=== PATIENT | female | born 1980 | race Caucasian/White ===

== ENCOUNTER 2016-07-01 16:21 | Observation (INO) | payer OTHER ==
--- NOTE | ~2016-07-01 | DS ---
Unit #: [id number] #: [id number] Patient: SHAHEED HOGAN [id number] [address] [place], [place] [address] [id number] I MR#: [id number] NAME: SHAHEED HOGAN ROOM: 571 Age: 36 Sex: F Admission Date: 07/01/2016 : 1980 Discharge Date: 07/02/2016 Attending Physician: Gio Summers M.D. Primary Care Physician: Marietta Will M.D. DISCHARGE SUMMARY SHORT STAY SUMMARY DISCHARGE DIAGNOSES 1. Chest pain, status post cardiology evaluation with a negative stress test. 2. Shortness of air on exertion. Offered to do a CT angiogram to rule out PE; however, patient adamantly refused this and states that she has been cleared per cardiology to be discharged. Again, explained the patient the importance to rule out the PE; however, again, patient refuses to stay. States that she will follow up with her primary care physician, Dr. Will, at the office. Patient is status post lower extremity ultrasound and status post negative unremarkable 2D echocardiogram, which did not show any right ventricular strain with a normal ejection fraction. Less likely to have a PE; however, that would have been in my differential if I would have had a chance to complete the workup on this patient; but, again, patient refuses to stay. 3. Questionable chronic obstructive pulmonary disease with mild wheezing on the exam. Will start on Ventolin p.r.n. inhaler. Outpatient followup with the primary care physician and consider pulmonary evaluation. 4. Urinary tract infection. Urine positive for nitrates and leukocyte esterase. Urine culture, preliminary, shows more than 100,000 colonies gram-negative leanna. Again, patient refusing to stay. Will start on Cipro empirically. Follow up with the primary care physician's office. Patient is asymptomatic from urinary tract infection standpoint. CONSULT DURING THIS HOSPITAL STAY Dr. Rivera. DIAGNOSTIC STUDIES IMAGING: Lower extremity ultrasound, as above. CARDIOVASCULAR: 2D echo, as above. Stress test unremarkable, per cardiology stable to be discharged. LABORATORY: UA as above. Chemistry significant for blood glucose of 118. White count 7.6. Serial cardiac enzymes negative. Coagulation panel unremarkable. H and H 13.9 and 41.8. Urine culture, again, pending. HISTORY OF PRESENT ILLNESS AND HOSPITAL STAY Patient is a 36-year-old, obese, female patient of Dr. Will's Unit #: [id number] #: [id number] Patient: SHAHEED HOGAN who started experiencing some chest pain, squeezing type of chest pain, along with some shortness of air and dyspnea on exertion; which was intermittent and started about 5 days ago. Patient denies any fever or chills. Denies any productive cough. Denies any headache or dizziness. Denies any syncopal episode or presyncopal episode. Denies any dysuria issues. Denies any nausea, vomiting, diarrhea, or abdominal pain. No alleviating factors to the pain and, again, exacerbated by increased physical activity. PAST MEDICAL HISTORY None. HOME MEDICATIONS None. ALLERGIES No known drug allergies. SOCIAL HISTORY She is an active smoker. Denies any alcohol or illicit drugs. FAMILY HISTORY Unremarkable. PAST SURGICAL HISTORY None. PHYSICAL EXAMINATION ON PRESENTATION GENERAL APPEARANCE: Patient is a 36-year-old, obese, female in no acute distress. VITAL SIGNS: BP 128/98, heart rate 83, respirations 20, and temperature 97.9. HEENT: Head is atraumatic. Pupils are equal, round, and reactive to light and accommodation. Extraocular muscles intact. Oropharynx clear with the missing teeth. NECK: Supple. No mass. No JVD. No bruits. CHEST: Diminished bilaterally at the bases with the occasional very mild expiratory wheezing. CARDIOVASCULAR: S1 and S2. No murmurs. ABDOMEN: Soft, nontender, and nondistended. LOWER EXTREMITIES: Without any cyanosis, clubbing, or edema. NEUROLOGIC: Patient grossly intact. No focal deficits. Labs and diagnostics as above. ASSESSMENT AND PLAN 1. Chest pain as above. Status post negative cardiac workup. 2. Shortness of air and dyspneas. Questionable COPD. Again, offered the CT angio to rule out PE. Refuses to stay. Will start on Ventolin. Outpatient followup with the primary care physician and pulmonary. 3. UTI. Urine culture, as above, pending. Will start on Cipro. 4. Obesity. Counseled on the importance of losing weight. DISCHARGE MEDICATIONS 1. Metoprolol 25 mg p.o. b.i.d. 2. Ventolin 2 puffs inhaled q.4-6 p.r.n. for shortness of air. 3. Cipro 500 mg p.o. b.i.d. for 5 days. Unit #: [id number] #: [id number] Patient: SHAHEED HOGAN Dictated by..Valentino Wynn/paxton TD: 07/03/2016 07:01 JOB #: [id number] DISCHARGE SUMMARY Page 1 of 1 X Gio Summers MD X DISCHARGE SUMMARY
--- NOTE | ~2016-07-01 | TH ---
Unit #: [id number] #: [id number] Patient: SHAHEED HOGAN [id number] [address] [address] [id number] I MR#: [id number] NAME: SHAHEED HOGAN : 1980 SEX: F STUDY DATE/TIME: 07/02/2016 UNIT: [facility] ROOM: 571 STUDY DESCRIPTION: Attending Physician: Gio Summers M.D. Primary Care Physician: Marietta Will M.D. CARDIOLOGY REPORT EXAM Exercise Cardiolite stress test, nuclear portion. PROCEDURE Using technetium 99m labeled Cardiolite, rest and stress SPECT images were obtained. Multiple SPECT images were obtained in various views including horizontal and vertical long axis and short axis views of the left ventricle. Images were obtained by gated SPECT method. The patient was administered 11.92 mCi of Cardiolite at rest. The patient was administered 33.5 mCi of Cardiolite at peak exercise. Total exercise time is 7 minutes. On the stress images, there is normal perfusion noted. The rest images show normal perfusion. Comparing rest and stress images, there is no stress induced ischemia noted. The left ventricular ejection fraction is calculated to be 65%. There is no focal wall motion abnormality seen. CONCLUSION 1. No stress-induced ischemia noted. 2. The left ventricular ejection fraction is calculated to be 67%. 3. There is no focal wall motion abnormality seen. 4. Normal exercise Cardiolite stress test. Dictated by... Valentino Fleming TD: 07/02/2016 12:53 JOB #: [id number] CARDIOLOGY REPORT Page 1 of 1 X Jennyfer Rivera MD <ELECTRONICALLY SIGNED> 09/12/16 1429 CARDIOLOGY REPORT
--- NOTE | ~2016-07-01 | CR72 ---
[facility] A Service of [facility] RADIOLOGY TEXT RESULTS PATIENT: SHAHEED HOGAN LOCATION: [place] [address] : [birth year] UNIT #: [id number] AGE: [address]: Gio Summers MD SEX: F ORDER DR: [id number] [facility] [address] [place], [place] [address] [id number] I MR#: [id number] Acc #: [id number] NAME: SHAHEED HOGAN : 1980 SEX: F STUDY DATE/TIME: 07/01/2016 17:38 [facility] ROOM: 50311 STUDY DESCRIPTION: CR Chest Single View Portable Attending Physician: Gio Summers M.D. Ordering Physician: Guy Souza D.O. Primary Care Physician: Marietta Will M.D. MEDICAL IMAGING REPORT This report is preliminary unless electronic signature is present EXAM Portable chest HISTORY Chest pain for 5 days. FINDINGS The cardiac size and pulmonary vascularity are normal. No infiltrates or effusions. IMPRESSION Negative. Dictated by... Abdulaziz Cha M.D. THIS IS AN ELECTRONICALLY VERIFIED REPORT Abdulaziz Cha M.D. at 07/01/2016 11:29 PM DFL/pcl TD: 07/01/2016 21:33 JOB #: [id number] MEDICAL IMAGING REPORT Page 1 of 1 COPY
--- NOTE | ~2016-07-01 | CT71 ---
[facility] A Service of [facility] RADIOLOGY TEXT RESULTS PATIENT: SHAHEED HOGAN LOCATION: [facility] [id number] : [birth year] UNIT #: [id number] AGE: [address]: Gio Summers MD SEX: F ORDER DR: [id number] [facility] [address] [facility] [place], [place] [address] [id number] I MR#: [id number] Acc #: [id number] NAME: SHAHEED HOGAN : 1980 SEX: F STUDY DATE/TIME: 07/01/2016 18:20 UNIT: [facility] ROOM: 36897 STUDY DESCRIPTION: CT Head Wo Contrast Attending Physician: Gio Summers M.D. Ordering Physician: Guy Souza D.O. Primary Care Physician: Marietta Will M.D. MEDICAL IMAGING REPORT This report is preliminary unless electronic signature is present EXAM CT head without contrast 07/01/2016 HISTORY 36-year-old female with blurry vision and headache for [address]. [address] head 08/13/2014 TECHNIQUE Routine unenhanced axial images performed through the brain. This CT exam was performed with one or more of the following radiation dose reduction techniques: Automatic exposure control, adjustment of mA and/or kV according to patient size, and iterative reconstruction. FINDINGS No hemorrhage, acute infarction, mass lesion, or abnormal extraaxial fluid collection. No midline shift or focal mass effect. Ventricular system is normal in size and configuration. No acute bony abnormality. Visualized paranasal sinuses and mastoid air cells are clear. IMPRESSION Negative unenhanced head CT. Dictated by... Nate Hernandez M.D. THIS IS AN ELECTRONICALLY VERIFIED REPORT Nate Hernandez M.D. at 07/01/2016 10:54 PM FREDY/marni TD: 07/01/2016 21:52 [facility] A Service [facility] RADIOLOGY TEXT RESULTS PATIENT: SHAHEED HOGAN LOCATION: [facility] [address] : [birth year] UNIT #: [id number] AGE: [address]: Gio Summers MD SEX: F ORDER DR: JOB #: [id number] MEDICAL IMAGING REPORT Page 1 of 1 COPY
--- NOTE | ~2016-07-01 | CO ---
Unit #: [id number] #: [id number] Patient: SHAHEED HOGAN [id number] [address] [place], [place] [address] [id number] I MR#: [id number] NAME: SHAHEED HOGAN ROOM: 571 Age: 36 Sex: F Admission Date: 07/01/2016 : 1980 Attending Physician: Gio Summers M.D. Primary Care Physician: Marietta Will M.D. Consultation Date: 07/02/2016 CONSULTATION REPORT REASON FOR CONSULTATION Chest pain and lower extremity edema. HISTORY OF PRESENT ILLNESS This is a 36-year-old white female who has been told she has had hypertension but has been noncompliant, anxiety, panic attacks, nicotine abuse, occasional marijuana use who came into the emergency room for complaints of worsening left lower extremity swelling and intermittent chest pain. According to the patient, for several months she has been having off and on lower extremity edema. In the last couple of weeks has had worsening swelling and also has been feeling real fatigued. She has been developing an intermittent headache with a little dizziness but denies any presyncope or syncope. She occasionally will have some substernal chest pressure. She denies any radiation up into her neck, bilateral jaws, shoulders, arms or elbows. She does get a little short of air and lightheadedness. She said it could be on exertion or non-exertion. She has been told that it could very possibly be panic attacks because she has had them in the past. She went to see Dr. Will yesterday. Her nurse practitioner sent her over to the hospital with her multiple complaints. Cardiology has been asked to assist with evaluation and management. The patient has not seen a geographic information systems director in the past. PAST MEDICAL HISTORY 1. Hypertension but noncompliant. He hasn't taken any medication for two years. 2. History of panic attack and anxiety. 3. History of alcohol abuse, quit ten years ago. 4. Nicotine abuse, two packs per day since the age of 16. 5. Marijuana use. 6. Obesity, 280 pounds with a BMI of 40. 7. No stress or cardiac cath. PAST SURGICAL HISTORY 1. Tubal ligation. 2. D and C. 3. Oral surgery. HOME MEDICATIONS None. ALLERGIES No known drug allergies. SOCIAL HISTORY Unit #: [id number] #: [id number] Patient: SHAHEED HOGAN The patient lives with her two children. 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 She says she is very sedentary most of the time. She smokes two packs of cigarettes a day. Used to drink heavy alcohol in her 20s, quit about ten years ago. She does occasional marijuana but denies any other illicit drug abuse. FAMILY HISTORY Her mother from a brain injury. Her father of an overdose. Her two siblings are in generally well health. REVIEW OF SYSTEMS See details in HPI. PHYSICAL EXAMINATION GENERAL: On exam, Mrs. Hogan is a 36-year-old white female in no acute respiratory distress. She is awake, alert and oriented. VITAL SIGNS: On admission, patient's blood pressure was 170/73. This morning her blood pressure is 130/83, heart rate is 82, respirations 16, temperature is 98.4, O2 sats 100% on room air. NECK: Trachea midline. No thyromegaly or lymphadenopathy. Normal carotid upstrokes. No jugular venous distention. HEART: S1, S2. Regular rate and rhythm. Soft systolic murmur over aortic region left sternal border. LUNGS: Diminished, otherwise clear. ABDOMEN: Obese, soft, nontender. Positive bowel sounds are present. EXTREMITIES: Pedal pulses are palpable. No pedal edema. DIAGNOSTIC STUDIES LABORATORY: Glucose is 118, BUN 10, creatinine 0.7, eGFR 110.7, sodium 136, potassium is 3.6, chloride 105, CO2 24, calcium 8.6, total protein 7.0, albumin 3.6, bili total 0.3, AST 19, ALT 20, and alkaline phos. is 98. WBC 7.6, hemoglobin 13.9, hematocrit 41.8, platelets 149. Initial cardiac enzymes - CK MB is 1.0, troponin less than 0.05, CK MB less than 1.0, troponin less than 0.05. Urine tox screen positive for marijuana. Urinalysis - 1+ leukocyte esterase, positive nitrates, 1.0 urobilinogen, 10-25 WBCs, 4+ bacteria. Urine culture is pending. INR 0.9. IMAGING: Chest x-ray shows nothing acute. Bilateral lower extremity venous Doppler studies are negative. No evidence of DVT. CT of the head without contrast is negative. CARDIOVASCULAR: EKG shows sinus tachycardia with ventricular rate 106 beats/minute, nonspecific ST-T wave abnormalities. IMPRESSION 1. Chest pain, questionable probable atypical. 2. Headache. Unit #: [id number] #: [id number] Patient: SHAHEED HOGAN 3. Dizziness. 4. Hypertension: This is noncompliant in the past with taking medication. 5. History of panic attack and anxiety. 6. Previous alcohol use. 7. Obesity, 280 pounds with a body mass index of 40. 8. Nicotine abuse. 9. Marijuana use. PLAN 1. Cardiology consult to assist with evaluation and management. So far, cardiac enzymes are negative. Continue to monitor. If they remain negative, will proceed with an exercise Cardiolite stress test to further evaluate for ischemic heart disease. 2. Obtain a 2D echo to evaluate LV function and valves. 3. Encouraged patient to completely quit smoking. Smoking cessation information provided to patient. 4. Encouraged patient healthy lifestyle modification like exercise and lose weight and stop smoking. 5. Obtain a TSH, a fasting lipid profile and evaluate. 6. Most likely will add low dose beta fatou for the patient's blood pressure and heart rate management. Will start on some metoprolol 25 mg p.o. twice daily. Also encouraged patient to continue on an aspirin, 81 mg daily. 7. Further recommendations pending per Dr. Rivera. Thank you very much for allowing us to assist in her care. Dictated by... Lissy Dutta A.P.R.N. for Valentino Fleming/olivia TD: 07/03/2016 07:55 JOB #: [id number] CONSULTATION REPORT Page 1 of 1 X Lissy Dutta APRN CONSULTATION REPORT
--- NOTE | ~2016-07-01 | ST ---
Unit #: [id number] #: [id number] Patient: SHAHEED HOGAN [id number] [address] [address] [id number] I MR#: [id number] NAME: SHAHEED HOGAN : 1980 SEX: F STUDY DATE/TIME: 07/02/2016 UNIT: [facility] ROOM: 571 STUDY DESCRIPTION: Exercise stress test Attending Physician: Gio Summers M.D. Primary Care Physician: Marietta Will M.D. CARDIOLOGY REPORT PROCEDURE PERFORMED Exercise Cardiolite stress test. PROCEDURE BASELINE EKG: Normal sinus rhythm with ventricular rate 83 beats per minute, mild left atrial abnormality, questionable Q wave in V1 only, slow R wave progression. The patient walked on the treadmill for 7 minutes utilizing the Miguel protocol, achieving a workload of 8.7 METS. She achieved 82% of the maximum target heart rate at 151 beats per minute with a hypertensive blood pressure response of 220/110 mmHg. EKG during the test was equivocal to baseline. No acute ischemic changes. The patient had no complaints of chest pain, palpitations or dizziness. Had increased shortness of breath and fatigue, which resolved in the recovery phase. IMPRESSION 1. Functional class 3 with a workload of 8.7 METS. 2. Patient walked for 7 minutes achieving 82% of maximum target heart rate at 151 beats per minute with a hypertensive blood pressure response of 220/110 mmHg. It was noted at the end of the recovery phase the patient's blood pressure decreased down to 159/87 mmHg. 3. The patient had no complaints of chest pain, palpitations or dizziness. Had increased shortness of breath and fatigue, which resolved in recovery phase. 4. Cardiolite was injected at maximum target heart rate. Radionuclide test pending. Please correlate with nuclear images. Dictated by... Lissy Dutta A.P.R.NDereje for Valentino Fleming/pietro TD: 07/02/2016 11:11 JOB #: [id number] Unit #: [id number] #: [id number] Patient: SAHHEED HOGAN CARDIOLOGY REPORT Page 1 of 1 X Lissy Dutta APRN CARDIOLOGY REPORT
--- NOTE | ~2016-07-01 | EKG ---
PATIENT: SHAHEED HOGAN UNIT #: [id number] Ventricular Rate: 106 BPM Atrial Rate: 106 BPM P-R Interval: 156 ms QRS Duration: 94 ms Q-T Interval: 346 ms QTC Calculation(Bezet): 459 ms P [place]: 65 degrees Calculated R [place]: 50 degrees Calculated T [place]: 61 degrees Diagnosis Line: Sinus tachycardia Diagnosis Line: Otherwise normal ECG Diagnosis Line: When compared with ECG of 13-AUG-2014 11:11, Diagnosis Line: No significant change was found Diagnosis Line: Confirmed by MARLYN JOYCE MD ([id number]) on 07/02/2016 Diagnosis Line: 10:02:46 AM INTERPRETING MD: ISIAH SERRANO
--- NOTE | ~2016-07-01 | BMI ---
[facility] Nutrition Therapy DATE: 07/02/16 Patient: SHAHEED HOGAN Physician: ELLA Address: [address] Room/Bed: [address] [place] [address], Zip: [place] [address] Admit Date: 07/01/16 Date of : [birth year] Height: 5 10 Weight: 280 127.4 HIGH BMI NOTE: DX: 36 yo female admitted for chest pain ANTHROPOMETRICS: Ht: 5'10: Wt: 127.3 kg (280#) BMI: 40.3 DIET: NPO INTERVENTION: 1. Restricted diet RECOMMENDATIONS: 1. Once medically feasible, advance diet as tolerated to healthy heart to promote gradual weight loss towards healthy BMI. RD will follow hospital course. Respectfully, Chelsie Atkinson, Off Track Betting Manager Zayra George RD, [employer] cc: client file
--- NOTE | ~2016-07-01 | US84 ---
[id number] [facility] [address] [place], [place] [address] [id number] I MR#: [id number] Acc #: [id number] NAME: SHAHEED HOGAN : 1980 SEX: F STUDY DATE/TIME: 07/01/2016 17:51 UNIT: [facility] ROOM: 553[address] STUDY DESCRIPTION: US LE Veins Complete Jesse Stdy Attending Physician: Gio Summers M.D. Ordering Physician: Guy Souza D.O. Primary Care Physician: Marietta Will M.D. MEDICAL IMAGING REPORT This report is preliminary unless electronic signature is present EXAM Bilateral lower extremity venous ultrasound. DATE OF EXAM 07/01/2016 HISTORY Pain. Swelling and pain 3-5 days. Chest pain, and shoulder pain, and migraine last 2 days. No history of clots. Not currently on blood thinners. No recent surgical history. TECHNIQUE Venous ultrasound examination of both lower extremities was performed using grayscale, spectral Doppler and color flow Doppler imaging. FINDINGS The examination is negative. There is no evidence of deep venous thrombus from the groin to the lower calf bilaterally. Visualized greater saphenous veins are also patent. IMPRESSION Negative examination. No evidence of lower extremity DVT. Dictated by... Narinder Remy M.D. THIS IS AN ELECTRONICALLY VERIFIED REPORT Narinder Remy M.D. at 07/02/2016 9:03 AM Festus TD: 07/01/2016 21:50 JOB #: [id number] MEDICAL IMAGING REPORT Page 1 of 1 COPY
[~2016-07-01 16:21] MED LIST: BACTRIM DS TABL1 TAB PO; CLONIDINE HCL0.1 MG PO; IBUPROFEN PO; KEFLEX PO; VICODIN 5/500 T1 TAB PO
[2016-07-01 17:41] LABS: BASOPHIL# 0.1 X10e3 (0-0.3); BASOPHIL% 0.7 % (0-2.5); EOSINOPHIL% 0.2 % (0.0-7.0); HEMATOCRIT 42.7 % (35.0-45.0); HEMOGLOBIN 14.1 gm/dL (12.0-16.0); LYMPHOCYTE# 2.6 X10e3 (1.0-3.5); LYMPHOCYTE% 31.8 % (17.0-45.0); MEAN CELL VOLUME 83.7 FL (83-96); MEAN CORPUSCULAR HEMOGLOBIN 27.6 PG (28-34); MEAN PLATELET VOLUME 8.6 FL (6.5-11.5); MONOCYTE# 0.7 X10e3 (0-1.0); MONOCYTE% 9.1 % (3.0-12.0); NEUTROPHIL# 4.8 X10e3 (1.5-7.1); NEUTROPHIL% 58.2 % (40-75); PLATELET COUNT 170 X10e3 (140-420); RED CELL DISTRIBUTION WIDTH 15.1 % (11.0-15.5); WHITE BLOOD COUNT 8.2 X10e3 (4.0-10.5)
[2016-07-01 17:43] LABS: DIFF IND NO
[2016-07-01 17:50] LABS: URINE SOURCE CLEAN CATCH
[2016-07-01 17:53] LABS: POC - TROPONIN <0.05 ng/mL (<=0.05)
[2016-07-01 17:55] LABS: INR 0.9; PARTIAL THROMBOPLASTIN TIME 25.9 SECONDS (23.5-31.3); PROTHROMBIN TIME (PATIENT) 9.4 SECONDS (9.6-11.5)
[2016-07-01 18:03] LABS: URINE APPEARANCE CLOUDY; URINE BILIRUBIN NEG (NEG); URINE BLOOD NEG (NEG); URINE COLOR YELLOW; URINE GLUCOSE NEG (NEG); URINE KETONE NEG (NEG); URINE LEUKOCYTE ESTERASE 1+ (NEG); URINE NITRATE POS (NEG); URINE PROTEIN NEG (NEG); URINE SPECIFIC GRAVITY 1.023 (1.003-1.035)
[2016-07-01 18:08] LABS: CULTURE INDICATED? YES; URINE BACTERIA AUWI 4+ (NEGATIVE); URINE SQUAMOUS EPITHELIAL CELL OCC /[HPF]
[2016-07-01 18:13] LABS: AMPHETAMINE NEG (NEG); BARBITURATES NEG (NEG); BENZODIAZEPINES NEG (NEG); COCAINE NEG (NEG); MARIJUANA POS (NEG); OPIATES NEG (NEG); TRICYCLIC ANTIDEPRESSANTS NEG (NEG); U METHADONE NEG (NEG)
[2016-07-01 18:35] LABS: ALBUMIN SERUM 3.6 g/dL (3.5-5.0); BILIRUBIN, DIRECT 0.1 mg/dL (0.0-0.2); BILIRUBIN,INDIRECT 0.2 mg/dL (0.0-0.9); BILIRUBIN,TOTAL 0.3 mg/dL (0.2-2.0); BUN/CREATININE RATIO 14.28; CALCIUM SERUM 8.6 mg/dL (8.4-10.2); CREATININE SERUM 0.7 mg/dL (0.6-1.4); GLOM FILT RATE Estimated 110.7 mL/min (>60); POTASSIUM 3.5 mmol/L (3.5-5.1)
[2016-07-01 19:32] LABS: POC - CKMB <1.0 ng/mL (0.0-7.9); POC - TROPONIN <0.05 ng/mL (<=0.05)
[2016-07-01] MEDS ORDERED: NO MEDICATIONS (22:52)
[2016-07-02 01:28] LABS: BASOPHIL# 0.1 X10e3 (0-0.3); BASOPHIL% 0.8 % (0-2.5); EOSINOPHIL% 0.2 % (0.0-7.0); HEMATOCRIT 41.8 % (35.0-45.0); HEMOGLOBIN 13.9 gm/dL (12.0-16.0); LYMPHOCYTE# 2.6 X10e3 (1.0-3.5); LYMPHOCYTE% 33.8 % (17.0-45.0); MEAN CELL VOLUME 83.8 FL (83-96); MEAN CORPUSCULAR HEMOGLOBIN 27.9 PG (28-34); MEAN CORPUSCULAR HGB CONC 33.3 g/dL (30-36); MONOCYTE# 0.8 X10e3 (0-1.0); MONOCYTE% 9.9 % (3.0-12.0); NEUTROPHIL# 4.2 X10e3 (1.5-7.1); NEUTROPHIL% 55.3 % (40-75); PLATELET COUNT 149 X10e3 (140-420); RED BLOOD COUNT 4.99 X10e (3.90-5.30); WHITE BLOOD COUNT 7.6 X10e3 (4.0-10.5)
[2016-07-02 01:30] LABS: DIFF IND NO
[2016-07-02 02:09] LABS: CK TOTAL 42 IU/L (26-140)
[2016-07-02 02:16] LABS: BUN/CREATININE RATIO 14.28; CALCIUM SERUM 8.6 mg/dL (8.4-10.2); CREATININE SERUM 0.7 mg/dL (0.6-1.4); GLOM FILT RATE Estimated 110.7 mL/min (>60); POTASSIUM 3.6 mmol/L (3.5-5.1)
[2016-07-02 08:54] LABS: CK TOTAL 47 IU/L (26-140)
[2016-07-02] MEDS ORDERED: CIPRO250 MG PO (19:21)
[2016-07-02] MEDS ORDERED: ALBUTEROL17 GM INH (19:22)
[2016-07-02] MEDS ORDERED: METOPROLOL SUCC25 MG PO (19:23)
[2016-07-02] MEDS ORDERED: ASPIRIN81 MG PO (19:23)
== END 2016-07-02 19:50 | disposition home or self-care (01) ==
LOC: CED 16:21 → CEDOF 20:35 → C5C 20:35 → CEDOF 20:37 → CED 20:37 → CEDOF 22:47 → C5C 22:47
PROVIDERS: Emergency Medicine; Hospitalist
DX: R07.89 Other chest pain (principal); R06.02 Shortness of breath; N39.0 Urinary tract infection, site not specified; I10 Essential (primary) hypertension; R51 Headache; E66.9 Obesity, unspecified; Z68.41 Body mass index [BMI] 40.0-44.9, adult; Z91.19 Patient's noncompliance with other medical treatment and regimen; R06.2 Wheezing; F17.210 Nicotine dependence, cigarettes, uncomplicated; F12.10 Cannabis abuse, uncomplicated
CPT/HCPCS: 36415; 70450; 71010; 78452; 80048; 80061; 80076; 80307; 81003; 82550; 82553; 84443; 84484; 84703; 85025; 85610; 85730; 87086; 87088; 87186; 93005; 93017; 93306; 93970; 99285; A9500; G0378

== ENCOUNTER 2016-07-04 21:45 | Emergency (ER) | payer OTHER ==
--- NOTE | ~2016-07-04 | CT16 ---
[facility] A Service of [facility] RADIOLOGY TEXT RESULTS PATIENT: SHAHEED HOGAN LOCATION: [facility] : [birth year] UNIT #: [id number] AGE: [address]: Edgar Wray MD SEX: F ORDER DR: [id number] [facility] [address] [place], [place] [address] [id number] MR#: [id number] Acc #: [id number] NAME: SHAHEED HOGAN : 1980 SEX: F STUDY DATE/TIME: 07/05/2016 00:20 UNIT: [facility] ROOM: STUDY DESCRIPTION: CT Angio Chest for PE Attending Physician: Edgar Wray M.D. Ordering Physician: Edgar Wray M.D. Primary Care Physician: Marietta Will M.D. MEDICAL IMAGING REPORT This report is preliminary unless electronic signature is present EXAM Chest CTA, 07/05 at 00:20 INDICATIONS Sharp left side chest pain and shortness of air with hemoptysis for 2 days. TECHNIQUE Axial images were obtained through the chest following IV contrast administration. 3-D reformats were obtained. No comparison. This CT exam was performed with one or more of the following radiation dose reduction techniques: Automatic exposure control, adjustment of mA and/or kV according to patient size, and iterative reconstruction. FINDINGS There is no pulmonary embolism or aortic dissection. There is no pericardial effusion. There is a trace amount of left pleural fluid. There is alveolar consolidation in the lingula, which is worrisome for pneumonia. There is some atelectasis or pneumonia in both lower lobes, left greater than right. Lungs are otherwise clear. There is left hilar adenopathy measuring 11 mm, short-axis diameter. This is probably reactive. No other adenopathy is identified. Adjacent to the left thyroid lobe, and possibly arising from it, there is a low-density lesion that extends behind the left clavicle. It measures about 3.2 x 4.1 cm. It measures fluid density and could reflect a large thyroid cyst or other duplication cyst. Followup with outpatient thyroid ultrasound is recommended. Upper abdomen demonstrates hepatic steatosis. There is splenomegaly with the spleen measuring at least 15.3 cm in craniocaudal dimension. IMPRESSION 1. No PE or dissection. 2. Infiltrate predominantly in the lingula worrisome for pneumonia. There is some probable atelectasis in the lower lobes, left greater STS. [facility] A Service of [facility] RADIOLOGY TEXT RESULTS PATIENT: SHAHEED HOGAN LOCATION: [facility] : [birth year] UNIT #: [id number] AGE: [address]: Edgar Wray MD SEX: F ORDER DR: than right. There is trace amount of left pleural effusion. 3. Fluid-density lesion adjacent to or arising from the left thyroid lobe. This is probably a benign finding but I would suggest outpatient thyroid ultrasound for followup. 4. Splenomegaly. 5. Hepatic steatosis. 6. Mild left hilar adenopathy, probably reactive. Dictated by... Yared Hall Jr., M.D. THIS IS AN ELECTRONICALLY VERIFIED REPORT Yared Hall Jr., M.D. at 07/05/2016 9:23 PM YANA/marni TD: 07/05/2016 17:42 JOB #: [id number] MEDICAL IMAGING REPORT Page 1 of 1 COPY
--- NOTE | ~2016-07-04 | EKG ---
PATIENT: SHAHEED HOGAN UNIT #: [id number] Ventricular Rate: 101 BPM Atrial Rate: 101 BPM P-R Interval: 140 ms QRS Duration: 94 ms Q-T Interval: 332 ms QTC Calculation(Bezet): 430 ms P [place]: 52 degrees Calculated R [place]: 52 degrees Calculated T [place]: 70 degrees Diagnosis Line: Sinus tachycardia Diagnosis Line: Otherwise normal ECG Diagnosis Line: No previous ECGs available Diagnosis Line: Confirmed by SUZANNE LAWTON MD ([id number]) on Diagnosis Line: 07/06/2016 8:36:25 AM INTERPRETING MD: LEIGHANN SERRANO
[~2016-07-04 21:45] MED LIST changes: +ALBUTEROL17 GM INH; +ASPIRIN81 MG PO; +CIPRO250 MG PO; +METOPROLOL SUCC25 MG PO; +NO MEDICATIONS
[2016-07-04 22:39] LABS: POC - CKMB <1.0 ng/mL (0.0-7.9); POC - TROPONIN <0.05 ng/mL (<=0.05)
[2016-07-04 22:50] LABS: BASOPHIL% 0.3 % (0-2.5); DIFF IND NO; EOSINOPHIL% 0.1 % (0.0-7.0); HEMATOCRIT 41.9 % (35.0-45.0); HEMOGLOBIN 13.7 gm/dL (12.0-16.0); LYMPHOCYTE# 2.2 X10e3 (1.0-3.5); LYMPHOCYTE% 19.4 % (17.0-45.0); MEAN CELL VOLUME 83.6 FL (83-96); MEAN CORPUSCULAR HEMOGLOBIN 27.3 PG (28-34); MEAN CORPUSCULAR HGB CONC 32.7 g/dL (30-36); MEAN PLATELET VOLUME 8.8 FL (6.5-11.5); NEUTROPHIL# 7.9 X10e3 (1.5-7.1); NEUTROPHIL% 71.2 % (40-75); PLATELET COUNT 175 X10e3 (140-420); RED BLOOD COUNT 5.01 X10e (3.90-5.30); WHITE BLOOD COUNT 11.1 X10e3 (4.0-10.5)
[2016-07-04 23:11] LABS: INR 0.9; PARTIAL THROMBOPLASTIN TIME 27.6 SECONDS (23.5-31.3); PROTHROMBIN TIME (PATIENT) 9.8 SECONDS (9.6-11.5)
[2016-07-04 23:17] LABS: ALBUMIN SERUM 3.6 g/dL (3.5-5.0); BILIRUBIN, DIRECT 0.1 mg/dL (0.0-0.2); BILIRUBIN,INDIRECT 0.5 mg/dL (0.0-0.9); BILIRUBIN,TOTAL 0.6 mg/dL (0.2-2.0); BUN/CREATININE RATIO 11.11; CALCIUM SERUM 8.7 mg/dL (8.4-10.2); CREATININE SERUM 0.9 mg/dL (0.6-1.4); GLOM FILT RATE Estimated 81.7 mL/min (>60); POTASSIUM 3.3 mmol/L (3.5-5.1); PROTEIN TOTAL SERUM 7.2 g/dL (6.0-8.3)
== END 2016-07-05 01:45 | disposition home or self-care (01) ==
LOC: CED 21:45
PROVIDERS: Emergency Medicine
DX: J18.9 Pneumonia, unspecified organism (principal); Z79.82 Long term (current) use of aspirin; Z79.899 Other long term (current) drug therapy; J44.9 Chronic obstructive pulmonary disease, unspecified; I10 Essential (primary) hypertension; F41.9 Anxiety disorder, unspecified; F17.210 Nicotine dependence, cigarettes, uncomplicated
CPT/HCPCS: 36415; 71275; 80048; 80076; 82553; 84484; 85025; 85610; 85730; 93005; 94640; 96361; 96374; 96375; 99284; J2270; J2405; J2930; Q9967